=== PATIENT | male | born 1990 | race Caucasian/White ===

== ENCOUNTER 2023-08-10 10:42 | Emergency (ER) | payer SELFPAY ==
[2023-08-10 11:11] VITALS: BP 170/120; PULSE 70; RESP 17; TEMP 98.2; BMI 32.1
== END 2023-08-10 11:13 | disposition home or self-care (01) ==
LOC: FER 10:42
DX: S61.411D Laceration without foreign body of right hand, subsequent encounter (principal); Z48.01 Encounter for change or removal of surgical wound dressing
CPT/HCPCS: 99282-25

== ENCOUNTER 2023-08-15 07:42 | Day surgery (SDC) | payer SELFPAY ==
[2023-08-15 08:04] VITALS: BMI 35.4
[2023-08-15 08:41] LABS: INR 1.04 (0.83-1.09); PROTHROMBIN TIME (PATIENT) 12.1 SEC (9.7-13.0)
[2023-08-15 08:44] LABS: ACTIVATED PTT 37.2 SECONDS (25.2-36.5)
[2023-08-15 08:50] LABS: HEMATOCRIT 50.6 % (35.4-49); HEMOGLOBIN 16.8 G/dL (11.7-16.9); MCH 29.6 pg (25.7-33.7); MCHC 33.1 g/dl (32.0-35.9); MEAN CELL VOLUME 89.4 fl (80-96); MEAN PLT VOLUME 9.6 fl (7.5-11.1); RBC 5.66 10^6/uL (4.00-5.60); RDW 14.3 % (11.9-15.9); WHITE BLOOD COUNT 8.3 10^3/uL (4.0-10.8)
[2023-08-15 08:53] LABS: BILIRUBIN,TOTAL 0.7 mg/dl (0.2-1); CALCIUM 10.3 mg/dl (8.5-10.1); CREATININE 1.1 mg/dl (0.6-1.3); POTASSIUM 3.8 mmol/L (3.5-5.1); TOT PROT 7.6 g/dl (6.4-8.2)
[2023-08-15 08:56] LABS: PLATELET ESTIMATE ADEQUATE
[2023-08-15] MEDS ORDERED: LIDOCAINE HCL/PF 2% SDV 5ML VIAL ONE (09:29)
[2023-08-15] MEDS ORDERED: PROPOFOL 20 ML ONE (09:30)
[2023-08-15] MEDS ORDERED: MIDAZOLAM HCL 2 MG/2 ML SINGLE DOSE VIAL ONE (09:30)
[2023-08-15] MEDS ORDERED: ROCURONIUM BROMIDE 50 MG/5 ML SYRINGE ONE (09:52)
[2023-08-15] MEDS ORDERED: DEXAMETHASONE SOD PHOSPHATE 4 MG/1 ML VIAL ONE (09:57)
[2023-08-15] MEDS ORDERED: ceFAZolin SODIUM 1 GM VIAL ONE (09:57)
[2023-08-15] MEDS ORDERED: oxyCODONE HCL 5 MG TABLET PO PRN ×2 (11:11)
[2023-08-15] MEDS ORDERED: PROMETHAZINE HCL 25 MG/1 ML VIAL IVPB PRN (11:11)
[2023-08-15] MEDS ORDERED: ACETAMINOPHEN 1000 MG/100 ML BAG IVPB ONE (11:12)
[2023-08-15] MEDS ORDERED: LACTATED RINGERS SOLUTION 1,000 ML IV SCH (11:15)
[2023-08-15 13:23] VITALS: RESP 16; TEMP 98.1
[2023-08-15 13:38] VITALS: BP 158/96; PULSE 88
== END 2023-08-15 13:30 | disposition home or self-care (01) ==
LOC: FER 07:42 → FASUSAT 08:13
PROVIDERS: ATTEND Orthopaedic Surgery Hand Surgery
PROC: 0LQ70ZZ Repair Right Hand Tendon, Open Approach (ICD-10-PCS; principal; 2023-08-15 09:59)
DX: S61.216A Laceration without foreign body of right little finger without damage to nail, initial encounter (principal); S66.126A Laceration of flexor muscle, fascia and tendon of right little finger at wrist and hand level, initial encounter; X58.XXXA Exposure to other specified factors, initial encounter; Y92.9 Unspecified place or not applicable; Y93.9 Activity, unspecified
CPT/HCPCS: 36415; 80053; 81003; 81015; 85027; 85610; 85730; 86850; 86900; 86901; 87086; 94760; 99285-25